=== PATIENT | male | born 1950 | race Caucasian/White ===

== ENCOUNTER 2018-10-27 07:11 | Emergency (ER) | payer MEDICARE, OTHER ==
--- OUTSIDE RECORDS SUMMARY | 2018-10-27 07:20 | XMS REPORT | Continuity of Care Document ---
:1950 External Reference #:[id number] Author Name Karrie Trujillo Care Team Providers Name Role Phone Cliff Osorio M.D. Primary Care Physician Unavailable Payers Date Identification Numbers Payment Provider Subscriber Effective: 2013 Policy Number: [id number] Medicare Part B Rickey Webster PayID: [id number] [address] [place] [address] Effective: 2013 Policy Number: [id number] [facility] Rickey Webster Group Number: [id number] [address] PayID: [id number] [place] [address] Effective: 2013 Policy Number: [id number] Medicare Part B Rickey Webster Expires: 2018 PayID: [id number] [address] [place] [address] Expires: 2011 Policy Number: [facility] Rickey Webster [id number] PayID: [id number] [address] [address] [place] [address] Advance Directives Description No Information Available Problems Date Description Provider Status Onset: 11/08/2012 Automatic implantable cardiac Ashwin Quinones MD Active defibrillator in situ Onset: 11/08/2012 Primary cardiomyopathy Ashwin Quinones MD Active Onset: 11/08/2012 Paroxysmal ventricular tachycardia Ashwin Quinones MD Active Onset: 11/08/2012 Aortic valve disorder Ashwin Quinones MD Active Onset: 03/23/2012 Atrial flutter Ashwin Quinones MD Active Onset: 04/14/2011 Atrial fibrillation Ashwin Quinones MD Active Family History Date Family Member(s) Observation Comments Father Cancer Mother Congestive Heart Failure (CHF) Social History Type Date Description Comments Sex Unknown Tobacco Use Start: Unknown End: Patient is a former smoker Smoking Status Reviewed: 05/11/18 Patient is a former smoker Allergies, Adverse Reactions, Alerts Description No Known Drug Allergies Medications Medication Date Status Form Strength Qnty SIG Indications Ordering Provider Aspirin 81 09/21/ Active Tablets DR 81mg 1 by mouth Ashwin 2018 every day MD Stacie Potassium 04/03/ Active Capsules ER 10Meq 1 by mouth Breiman, Chloride ER 2017 every day Cliff Willard M.D. Amiodarone 05/05/ Active Tablets 100mg 36tabs 1 by mouth Ashwin HCL 2016 every m, w, patsy Quinones MD Lasix 11/15/ Active Tablets 40mg 90tabs 1 by mouth Ashwin 2013 every day MD Stacie Aldactone 04/01/ Active Tablets 25mg 90tabs 1 by mouth Ashwin 2010 every day MD Stacie Prevacid / Active Capsules DR 30mg 90caps 1 by mouth Ashwin every day MD Stacie Advair / Active Aerosol 250-50mcg/ 1 puff bid Unknown Diskus 0000 Dose Kristine / Active Tablets 180mg 1 PO qd prn Unknown Allergy 0000 Albuterol / Active Nebulizer (2.5mg/3ML 1 nebulized Unknown Sulfate 0000 ) 0.083% three times a day needed SOB, wheezing Spiriva / Active Capsules 18mcg 1 by mouth Unknown Handihaler 0000 everyday Lopressor / Active Tablets 50mg 90tabs 1/2 by Ashwin 0000 mouth twice mary Quinones MD Immunizations Description No Information Available Vital Signs Date Vital Result Comment 09/21/2018 1:04pm Height 68 inches 5'8" Weight 207.00 lb BMI (Body Mass Index) 31.5 kg/m2 BP Systolic Right Arm 122 mmHg BP Diastolic Right Arm 88 mmHg 05/11/2018 10:19am Height 68 inches 5'8" Weight 209.00 lb BMI (Body Mass Index) 31.8 kg/m2 BP Systolic Left Arm 128 mmHg BP Diastolic Left Arm 90 mmHg Heart Rate 76 /min 05/05/2017 2:56pm Height 68 inches Weight 213.00 lb BMI (Body Mass Index) 32.4 kg/m2 BP Systolic 150 mmHg BP Diastolic 100 mmHg Heart Rate 90 /min 07/22/2016 11:34am Height 68 inches Weight 215.00 lb BMI (Body Mass Index) 32.7 kg/m2 BP Systolic 172 mmHg BP Diastolic 78 mmHg Heart Rate 64 /min 10/29/2015 10:57am Height 68 inches Weight 210.00 lb BMI (Body Mass Index) 31.9 kg/m2 BP Systolic 122 mmHg BP Diastolic 88 mmHg Heart Rate 66 /min 02/20/2015 12:24pm Height 68 inches Weight 199.00 lb BMI (Body Mass Index) 30.3 kg/m2 BP Systolic 104 mmHg BP Diastolic 78 mmHg Heart Rate 60 /min 11/15/2013 10:22am Height 68 inches Weight 198.00 lb BMI (Body Mass Index) 30.1 kg/m2 BP Systolic 118 mmHg BP Diastolic 76 mmHg Heart Rate 81 /min 11/09/2012 1:54pm Height 68 inches Weight 211.00 lb BMI (Body Mass Index) 32.1 kg/m2 BP Systolic 132 mmHg BP Diastolic 70 mmHg Heart Rate 74 /min 03/23/2012 3:41pm Height 68 inches Weight 219.50 lb BMI (Body Mass Index) 33.4 kg/m2 BP Systolic 118 mmHg BP Diastolic 72 mmHg Heart Rate 70 /min 07/05/2011 12:20pm Height 68 inches Weight 218.00 lb BMI (Body Mass Index) 33.1 kg/m2 BP Systolic 120 mmHg BP Diastolic 88 mmHg Heart Rate 68 /min 05/27/2011 2:01pm Height 68 inches Weight 217.00 lb BMI (Body Mass Index) 33.0 kg/m2 BP Systolic 104 mmHg BP Diastolic 76 mmHg Heart Rate 72 /min 04/01/2011 12:02pm Height 68 inches Weight 220.00 lb BMI (Body Mass Index) 33.4 kg/m2 BP Systolic 110 mmHg BP Diastolic 88 mmHg Heart Rate 68 /min Body Temperature 97.3 F Body Temperature 36.3 C 03/01/2011 3:26pm Height 68 inches Weight 230.00 lb BMI (Body Mass Index) 35.0 kg/m2 BP Systolic 160 mmHg BP Diastolic 80 mmHg Heart Rate 80 /min 01/05/2011 11:56am BP Systolic 154 mmHg BP Diastolic 88 mmHg 01/05/2011 11:56am Height 66 inches Weight 228.00 lb BMI (Body Mass Index) 36.8 kg/m2 BP Systolic 150 mmHg BP Diastolic 90 mmHg Heart Rate 68 /min Results Test Date Facility Test Result H/L Range Note Order 09/21/2018 [facility], [facility] EKG <pending> TRENT 11/15/2013 [facility] A/G Ratio 1.5 Ratio 1.0-2.0 [address] [place] [address] [phone] Albumin 4.1 g/dL 3.4-4.8 Alk. Phos. 63 U/L 25-100 1 Alt 19 U/L 4-36 Ast 16 U/L 8-33 Direct Bilirubin 0.3 mg/dL High 0.0-0.2 Globulin 2.7 g/dL 2.4-3.7 Total Bilirubin 1.0 mg/dL 0.3-1.2 Total Protein 6.8 g/dL 6.4-8.3 TSH+Free T4 11/15/2013 [facility] Free T4 1.20 ng/dL 0.89-1.80 [address] [place] [address] [phone] TSH3 2.271 miu/ml 0.350-5.500 TRENT 03/30/2012 [facility] A/G Ratio 1.8 Ratio 1.0-2.0 [address] [place] [address] [phone] Albumin 4.5 g/dL 3.4-4.8 Alk. Phos. 61 U/L 25-100 2 Alt 23 U/L 4-36 Ast 22 U/L 8-33 Direct Bilirubin 0.2 mg/dL 0.0-0.2 Globulin 2.5 g/dL 2.4-3.7 Total Bilirubin 0.9 mg/dL 0.3-1.2 Total Protein 7.0 g/dL 6.4-8.3 Laboratory test 04/01/2011 [facility] B Natriuretic 99 pg/mL (0-100) finding [address] [place] [address] [phone] Basic Metabolic 04/01/2011 [facility] Anion Gap 11 mmol/L (7-16) Panel W/O Egfr [address] [place] [address] [phone] BUN/Creat Ratio 10.9 RATIO (10.0-20.0) Calcium 9.3 mg/dL (8.4-10.2) Chloride 105 mmol/L (100-108) Co2 29 mmol/L (22-31) Creatinine 1.1 mg/dL (0.8-1.3) GFR 72 ML/MIN/1.73M2 (>59) GFR ( Amer) 87 ML/MIN/1.73M2 (>59) Glucose 74 mg/dL (70-99) Potassium 4.2 mmol/L (3.6-5.2) Sodium 145 mmol/L (136-145) 3 Urea Nitrogen 12 mg/dL (7-24) CBC W/Auto Diff 04/01/2011 [facility] % Tobin 66.1 % 41.0-80.0 [address] [place] [address] [phone] %Baso 0.9 % 0.0-3.0 %Eos 3.8 % 0.0-8.0 %Lym 21.4 % 10.0-45.2 %Chilton 5.7 % 2.0-13.0 Baso 0.1 x10E3/uL 0.0-0.2 Eos 0.4 x10E3/uL 0.0-0.6 HCT 42.8 % 39-52 HGB 14.2 g/dL 13.8-18.0 Lymp 2.5 x10E3/uL 0.6-3.1 MCH 29.6 pg 27-33 MCHC 33.3 g/dL 32-36 MCV 89.1 fL 80-98 MPV 6.6 fL Low 7.0-12.3 Chilton 0.7 x10E3/uL 0.0-1.0 Neut 7.6 x10E3/uL 2.0-8.1 PLT 433 x10E3/uL High 135-420 RBC 4.80 x10E6/uL 4.4-6.0 RDW 12.3 % 11.2-15.2 WBC 11.4 x10E3/uL 4.2-12.0 4 1 Results may reflect a potential interference in Total Protein results in patients receiving dextran as blood volume expanders. 2 Results may reflect a potential interference in Total Protein results in patients receiving dextran as blood volume expanders. 3 NORMAL KIDNEY FUNCTION OR MILD DISEASE - GFR >OR=60 CHRONIC KIDNEY DISEASE - GFR 15 - 59 RENAL FAILURE - GFR <15 Est. GFR calculation based on the MDRD study equation, which assumes a steady state for creatinine. Est. GFR should not be used for medication dosing. 4 report faxed [phone] threadsy Procedures Date Code Description Status 09/21/2018 23625 Dual Lead Implantable Cardioverter-Defibrillator Completed 09/21/2018 09423 Electrocardiogram Complete Completed 08/17/2018 65115 Pacemaker/Cardio-Defibrillator Remote Data Acquistion Completed 08/17/2018 88178 Interrogation Device Evaluation Cardioverter-Defibrillator Completed 05/11/2018 20040 Implant Cardiovascular Monitoring System Completed 05/11/2018 73903 Dual Lead Implantable Cardioverter-Defibrillator Completed 11/24/2017 97898 Pacemaker/Cardio-Defibrillator Remote Data Acquistion Completed 11/24/2017 38034 Interrogation Device Evaluation Cardioverter-Defibrillator Completed 08/18/2017 54097 Pacemaker/Cardio-Defibrillator Remote Data Acquistion Completed 08/18/2017 75580 Interrogation Device Evaluation Cardioverter-Defibrillator Completed 05/05/2017 42689 Electrocardiogram Complete Completed 05/05/2017 41922 Electrocardiogram Complete Completed 05/05/2017 81023 Dual Lead Pacemaker System Completed 05/05/2017 39586 Dual Lead Pacemaker System Completed 05/05/2017 81103 Implant Cardiovascular Monitoring System Completed 05/05/2017 86750 Implant Cardiovascular Monitoring System Completed 01/23/2017 70995 Pacemaker/Cardio-Defibrillator Remote Data Acquistion Completed 01/23/2017 88580 Interrogation Device Evaluation Cardioverter-Defibrillator Completed 10/21/2016 24908 Pacemaker/Cardio-Defibrillator Remote Data Acquistion Completed 10/21/2016 80951 Interrogation Device Evaluation Cardioverter-Defibrillator Completed 05/04/2016 00265 Implant CV Monitoring/Loop Record System Remote Data Completed Acquistion 05/04/2016 10453 Implantable Loop Recorder System, Review And Report Completed 01/28/2016 73636 Pacemaker/Cardio-Defibrillator Remote Data Acquistion Completed 01/28/2016 76947 Interrogation Device Evaluation Cardioverter-Defibrillator Completed 10/29/2015 07367 Electrocardiogram Complete Completed 10/29/2015 54537 Dual Lead Implantable Cardioverter-Defibrillator Completed 02/20/2015 78322 Implant Cardiovascular Monitoring System Completed 02/20/2015 20361 Dual Lead Implantable Cardioverter-Defibrillator Completed 11/15/2013 73815 Implant Cardiovascular Monitoring System Completed 11/15/2013 03931 Dual Lead Implantable Cardioverter-Defibrillator Completed 11/15/2013 32164 Electrocardiogram Complete Completed 11/09/2012 36168 Echocardiography, Tranthoracic Real-Time Image Completed Documentation 11/09/2012 59189 Interrogation Device Evaluation Cardioverter-Defibrillator Completed 03/23/2012 37201 Dual Lead Implantable Cardioverter-Defibrillator Completed 03/23/2012 95254 Electrocardiogram Complete Completed 07/05/2011 47052 Dual Lead Implantable Cardioverter-Defibrillator Completed 07/05/2011 57437 Electrocardiogram Complete Completed 05/27/2011 42116 Electrocardiogram Complete Completed 05/27/2011 95692 Dual Lead Implantable Cardioverter-Defibrillator Completed 04/01/2011 13133 Electrocardiogram Complete Completed 03/25/2011 15569 Evaluate Cardioverter-Defibirllator Lead, Test Pulse Completed Generator 03/25/2011 33302 X-Ray & Pacemaker Insertion Completed 03/25/2011 42796 Insert/Replace Cardioverter-Defibrillator Leads W/Pulse Completed Generator 03/24/2011 78604 Intracardiac Catheter Ablation For Supravent Tachycardia Completed 03/24/2011 50156 Electrophysiologic Evaluation W/Left Atrial Recordings Completed 03/24/2011 65262 Electrophysiologic Eval,comprehensive W/Induction Of Completed Arrhythmia 03/24/2011 22532 Mapping Of Tachycardia Completed 03/24/2011 32502 Echocardiography, Tranthoracic Real-Time Image Completed Documentation 03/01/2011 25925 Electrocardiogram Complete Completed 01/05/2011 25834 Electrocardiogram Complete Completed Encounters Type Date Location Provider Dx Diagnosis Office Visit 09/21/2018 [facility] Cardiology AT [place] Farrell.2 Ventricular 1:00p Naman CASTELLANOS tachycardia Z95.810 Presence of automatic (implantable) cardiac defibrillator Office Visit 05/11/2018 [facility] Cardiology AT [facility] I42.0 Dilated 10:30a Naman Quinones MD cardiomyopathy I48.0 Paroxysmal atrial fibrillation Z95.810 Presence of automatic (implantable) cardiac defibrillator Office Visit 05/05/2017 9:57a [facility] Cardiology AT [facility] I47.2 Ventricular Naman Quinones MD tachycardia I42.9 Cardiomyopathy, unspecified Office Visit 07/22/2016 [facility] Cardiology AT [facility] I48.0 Paroxysmal atrial 12:13p Naman Quinones MD fibrillation Z95.810 Presence of automatic (implantable) cardiac defibrillator Office Visit 10/29/2015 [facility] Cardiology [place] Z95.810 Presence of 3:58p AT [place] automatic (implantable) cardiac defibrillator I42.9 Cardiomyopathy, unspecified I47.2 Ventricular tachycardia Plan of Treatment Future Appointment(s):10/22/2018 11:00 am - [facility] at [facility] Cardiology AT [place]jo[facility]/15/2019 11:00 am - Device Checks at [facility] Cardiology AT Nsgdaitmszjn70/ 15/2019 11:00 am - Ashwin Quinones MD at [facility] Cardiology AT Hebfsreezpjd89/15/ 2019 - Ashwin Quinones MDI47.2 Ventricular [id number] Presence of automatic (implantable) cardiac defibrillator
[2018-10-27 07:32] VITALS: BP 159/89
--- NOTE | 2018-10-27 08:03 | UC ---
General HPI - HPI Summary HPI Summary: Pleasant 67 yo gentleman c/o progressive worse cough with green production last couple days. Uses cpap at night, but stilll not able to sleep. LAst night went to sleep approx 2am and awoke approx 5am, coiughing green sputum and difficulty breathing. used 2 home nebulized tx's, but didn't make him feel that much better, prompting visit to [facility]. No palpitations. No GI issues. He is scheduled for battery replacement for pacemaker in [place] on Monday. No fever / chills. No issues. He is under a great deal of stress, spouse is in the process of end of end-stage 4 cancer. - History of Current Complaint Chief Complaint: UCRespiratory Stated Complaint: CHEST CONGESTION Time Seen by Provider: 10/27/18 07:30 Hx Obtained From: Patient Pain Intensity: 0 - Allergy/Home Medications Allergies/Adverse Reactions: Allergies Allergy/AdvReac Type Severity Reaction Status Date / Time No Known Allergies Allergy Verified 10/27/18 07:25 Home Medications: Home Medications Amiodarone HCl [Pacerone] 100 mg PO SEE INSTRUCTIONS 10/27/18 [History Confirmed 10/27/18] Fluticasone NASAL SPRAY 50MCG* [Flonase NASAL SPRAY 50MCG*] 1 spray .ROUTE DAILY 10/27/18 [History Confirmed 10/27/18] Furosemide TAB* [Lasix TAB*] 40 mg PO DAILY 10/27/18 [History Confirmed 10/27/18 ] LevoCETirizine TAB (NF) [Xyzal TAB (NF)] 5 mg PO DAILY 10/27/18 [History Confirmed 10/27/18] Potassium Chlor TAB (NF) [Kaon-Cl-10 TAB (NF)] 10 meq PO DAILY 10/27/18 [ History Confirmed 10/27/18] PMH/Surg Hx/FS Hx/Imm Hx Previously Healthy: No - see below, see hpi Cardiovascular History: Cardiac Disease, Hypertension, Pacemaker/ICD Respiratory History: COPD - Surgical History Surgical History: Yes Surgery Procedure, Year, and Place: pacer/defib- 03/2011. eyes- cataract, detached retina - Family History Known Family History: Positive: Hypertension - Social History Alcohol Use: None Substance Use Type: None Smoking Status (MU): Former Smoker When Did the Patient Quit Smoking/Using Tobacco: 30 years ago - Immunization History Most Recent Influenza Vaccination: 2014 Review of Systems All Other Systems Reviewed And Are Negative: Yes Constitutional: Positive: Fatigue Skin: Positive: Negative Eyes: Positive: Negative ENT: Positive: Sinus Congestion Respiratory: Positive: Shortness Of Breath, Cough Cardiovascular: Positive: Negative - see hpi Gastrointestinal: Positive: Other - see hpi Genitourinary: Positive: Other - see hpi Motor: Positive: Negative Neurovascular: Positive: Negative Musculoskeletal: Positive: Negative Neurological: Positive: Negative Psychological: Positive: Negative Is Patient Immunocompromised?: No Physical Exam Triage Information Reviewed: Yes Appearance: Well-Nourished - looks tired, sitting up, conversing in full sentances, able walk Vital Signs: Initial Vital Signs Temp 98.3 F 10/27/18 07:24 Pulse 94 10/27/18 07:24 Resp 18 10/27/18 07:24 BP 159/89 10/27/18 07:24 Pulse Ox 95 10/27/18 07:24 Vital Signs Reviewed: Yes Eye Exam: Normal - eyes watery ENT: Positive: Pharyngeal erythema - redness, appears c/w cough, Nasal drainage Neck exam: Normal Neck: Positive: Supple Respiratory Exam: Other - + rhonchi, lise wheeze R>L Cardiovascular Exam: Other - HR regular with extra beats, correlates with L radial pulse. C/w pacer Abdominal Exam: Normal Abdomen Description: Positive: Nontender Musculoskeletal: Positive: Edema @ - mild dependent edema, hemosiderosis Neurological Exam: Normal - grossly nonfocal Psychological Exam: Normal - conversing easily and appropriately Skin Exam: Normal - nondiaphoretic. No visible or reported rash Course/Dx - Course Course Of Treatment: Declines neb tx, will let us know otherwise. R eac flushed - able to hear, tm intact. Reviewed CXR report with pt. See [facility]. Pneumonia. EKG reviewed - no old in [facility]. Mr. Webster absolutely declines going to the Emergency Department. He wants to be home with his . He is aware of the need to call 911 and go to the Emergency Department for any worse or new problems, shortness of breath, etc. Has nebulizer with medications at home. Irrigation R marisela (RN) - tm looks good. Rocephin x 1 here. Will start augmentin, pred taper. Questions as posed answered to the best of my ability. - Diagnoses Provider Diagnosis: Bilateral pneumonia, Cerumen impaction, COPD (chronic obstructive pulmonary disease) Discharge - Sign-Out/Discharge Documenting (check all that apply): Patient Departure All imaging exams completed and their final reports reviewed: Yes - Discharge Plan Condition: Stable Disposition: HOME Prescriptions: Amoxicillin/Clavulanate TAB* [Augmentin TAB 875*] 875 mg PO BID 14 Days #28 tab predniSONE TAB* [Deltasone 10 MG TAB*] 10 mg PO DAILY #32 tab Patient Education Materials: COPD (Chronic Obstructive Pulmonary Disease) (ED) , Bacterial Pneumonia (ED), Wheezing (ED), Cerumen Impaction (ED) Referrals: Cliff Osorio MD [Medical Doctor] - Additional Instructions: Follow up with your primary care physician ON MONDAY. CAll 911 and go to the Emergency Department for any worse or new problems. You must maintain good nutrition, including protein. Drink plenty of water. - Billing Disposition and Condition Condition: STABLE Disposition: Home
[2018-10-27] MEDS ORDERED: cefTRIAXone VIAL(*) 1,000 MG VIAL IM ONE (09:17)
[2018-10-27] MEDS ORDERED: Lidocaine 1%* 5 ML VIAL INJ ONE (09:22)
== END 2018-10-27 10:00 | disposition home or self-care (01) ==
LOC: UCEAST 07:11
DX: J18.9 Pneumonia, unspecified organism (principal); H61.21 Impacted cerumen, right ear; J44.9 Chronic obstructive pulmonary disease, unspecified; I11.9 Hypertensive heart disease without heart failure; Z95.810 Presence of automatic (implantable) cardiac defibrillator; Z87.891 Personal history of nicotine dependence
CPT/HCPCS: 71046; 93005; 96372; 99202; G0463; J0696

== ENCOUNTER 2019-09-17 16:48 | Emergency (ER) | payer MEDICARE, OTHER ==
[2019-09-17 16:59] VITALS: BP 130/93
--- NOTE | 2019-09-17 18:06 | UC ---
Lower Extremity/Ankle HPI - HPI Summary HPI Summary: 68-year-old male comes in with a chief complaint of some hardened varicose veins in his right calf. He noticed them a couple days ago. No chest pain no shortness of breath no prior history of deep venous thrombosis. He does have a pacemaker defibrillator and at one time he was upper neck however he is not on any longer. Denies any fever chills. Denies the area hurts. The area over the hard varicose veins is erythematous. - History of Current Complaint Chief Complaint: UCLowerExtremity Stated Complaint: POSS DVT IN LEG Time Seen by Provider: 09/17/19 17:51 Pain Intensity: 0 - Allergies/Home Medications Allergies/Adverse Reactions: Allergies Allergy/AdvReac Type Severity Reaction Status Date / Time No Known Allergies Allergy Verified 09/17/19 16:59 Home Medications: Home Medications Spironolactone [Aldactone] 25 mg PO DAILY 04/07/13 [History Confirmed 09/17/19] Tiotropium CAPSULE (NF) [Spiriva*] 1 cap INH DAILY 04/07/13 [History Confirmed 09/17/19] Furosemide TAB* [Lasix TAB*] 40 mg PO DAILY 10/27/18 [History Confirmed 09/17/19 ] LevoCETirizine TAB (NF) [Xyzal TAB (NF)] 5 mg PO DAILY 10/27/18 [History Confirmed 09/17/19] Potassium Chlor TAB (NF) [Kaon-Cl-10 TAB (NF)] 10 meq PO DAILY 10/27/18 [ History Confirmed 09/17/19] Amiodarone HCl [Pacerone-] 100 mg PO DAILY 09/17/19 [History Confirmed 09/17/19] Aspirin 81 mg CHEW TAB* 81 mg PO DAILY 09/17/19 [History Confirmed 09/17/19] LevoCETirizine TAB (NF) [Xyzal TAB (NF)] 5 mg PO DAILY 09/17/19 [History Confirmed 09/17/19] Metoprolol Tartrate TAB* [Lopressor TAB*] 50 mg PO DAILY 09/17/19 [History Confirmed 09/17/19] hydrOXYzine HCL [Hydroxyzine HCl] 10 mg PO DAILY 09/17/19 [History Confirmed 04/28] PMH/Surg Hx/FS Hx/Imm Hx Previously Healthy: Yes Cardiovascular History: Cardiac Disease, Hypertension, Congestive Heart Failure Respiratory History: COPD - Surgical History Surgical History: Yes Surgery Procedure, Year, and Place: pacer/defib- 03/2011. eyes- cataract, detached retina - Family History Known Family History: Positive: Hypertension - Social History Alcohol Use: None Substance Use Type: None Smoking Status (MU): Former Smoker When Did the Patient Quit Smoking/Using Tobacco: 30 years ago - Immunization History Most Recent Influenza Vaccination: 2014 Review of Systems All Other Systems Reviewed And Are Negative: Yes Constitutional: Positive: Negative Skin: Positive: Other - SEE HPI Eyes: Positive: Negative ENT: Positive: Negative Respiratory: Positive: Negative Cardiovascular: Positive: Negative Motor: Positive: Negative Neurovascular: Positive: Negative Musculoskeletal: Positive: Other: - SEE HPI Neurological/Mental Status: Positive: Negative Psychological: Positive: Negative Is Patient Immunocompromised?: No Physical Exam Triage Information Reviewed: Yes Appearance: Well-Appearing, No Pain Distress, Well-Nourished Vital Signs: Initial Vital Signs Temp 97.9 F 09/17/19 16:53 Pulse 82 09/17/19 16:53 Resp 16 09/17/19 16:53 BP 130/93 09/17/19 16:53 Pulse Ox 98 09/17/19 16:53 Vital Signs Reviewed: Yes Eye Exam: Normal Eyes: Positive: Conjunctiva Clear Neck: Positive: Supple Respiratory: Positive: Lungs clear, Normal breath sounds, No respiratory distress Cardiovascular: Positive: RRR Musculoskeletal: Positive: Strength Intact, ROM Intact, Other: - Right calf has an area proximal before some years diameter of hardened varicose veins with some erythema over them. No streaking no drainage. No open skin. Nontender to palpation proximally into the popliteal. Neurological: Positive: Alert Psychological: Positive: Age Appropriate Behavior Skin: Positive: Other - Mild erythema over the right calf hardened varicose veins. Lower Extremity Course/Dx - Course Course Of Treatment: Director Of Agronomy: Joseph Calderon ([id number]) Rivet Hole Puncher: FLORENTINO (FLORENTINO) Report Date: 09/17/2019 17:51:00 Report Status: Final Start of Report Content Patient Name: HERMINIO RENEE Medical Record#: [id number] Ordering Physician: Oscar Smyth MD Acct.#: [id number] : 04/1951 Age: 68 Sex: M Location: [facility] Exam Date: 09/17/191653 ADM Status: REG ER Order Information: VL LOWER EXT VEINS RIGHT Accession Number: [id number] CPT: 28221 HISTORY: "Lump" at mid medial right calf TECHNIQUE: Multiple transverse and longitudinal ultrasound images were obtained of the veins of the right lower extremity using grayscale, color Doppler, and spectral Doppler imaging with and without compression and with augmentation. FINDINGS: VEINS: The common femoral vein, deep femoral vein, femoral vein and popliteal vein are compressible throughout their course, with normal flow on color Doppler imaging and normal response to augmentation on spectral Doppler imaging. Corresponding to the palpable lump is echogenic material in the superficial veins consistent with superficial thrombophlebitis. IMPRESSION: 1. No sonographic evidence of deep vein thrombosis. 2. Sonographic images are consistent with thrombophlebitis of superficial varicose veins. On a nonemergent basis superior characterization could be made with a sonographic superficial vein reflux study and/or contrast-enhanced CT of the abdomen and pelvis to evaluate for any central venous compressions. If the latter is obtained, CT venography can be obtained by injecting IV contrast at the level of the right ankle and imaging the contrast bolus in the right thigh as well as the abdomen or pelvis. ___ <Electronically signed by Joseph Calderon MD in OV> 09/17/191746 Dictated By: Joseph Calderon MD Dictated Date/Time: 09/17/191743 Transcribed Date/Time: 1743 Copy to: CC:Health system Physicians; Cliff Osorio MD; Oscar Smyth MD Imaging - [facility] - [facility] [address] [facility] [address] ph [phone]) ph [phone]) ph ) End of Report Content I discussed the results of the venous Doppler. At this time is a superficial thrombophlebitis and will treat as such with anti-inflammatories elevation and cool compresses. I asked the patient to call his primary care doctor tomorrow to discuss compression stockings and further evaluation and care. Also let the patient know that if the area spread or if he got pain higher up in the leg or felt any chest pain or shortness of breath immediate reevaluated again right away. - Differential Dx/Diagnosis Provider Diagnosis: Superficial thrombophlebitis of right leg Discharge ED - Sign-Out/Discharge Documenting (check all that apply): Patient Departure All imaging exams completed and their final reports reviewed: Yes - Discharge Plan Condition: Stable Disposition: HOME Patient Education Materials: Superficial Thrombophlebitis (ED) Referrals: Cliff Osorio MD [Primary Care Provider] - Additional Instructions: FOLLOW UP WITH DR OSORIO. CALL TOMORROW TO ARRANGE FOLLOW UP. YOU MAY NEED ANOTHER ULTRASOUND TO RECHECK YOUR RIGHT LEG IF THE AREA AFFECTED GETS LARGER OR DOES NOT GO AWAY. GO TO THE EMERGENCY DEPARTMENT IF WORSE; CHEST PAIN, SHORTNESS OF BREATH OR ANY QUESTIONS OR CONCERNS. - Billing Disposition and Condition Condition: STABLE Disposition: Home
== END 2019-09-17 18:08 | disposition home or self-care (01) ==
LOC: UCEAST 16:48
DX: I80.01 Phlebitis and thrombophlebitis of superficial vessels of right lower extremity (principal); I10 Essential (primary) hypertension; J44.9 Chronic obstructive pulmonary disease, unspecified; I50.9 Heart failure, unspecified; Z79.82 Long term (current) use of aspirin; Z79.899 Other long term (current) drug therapy; Z87.891 Personal history of nicotine dependence
CPT/HCPCS: 99212; G0463

== ENCOUNTER 2021-11-15 10:22 | Inpatient (IN) ==
[2021-11-15] MEDS ORDERED: Cefepime 2 GM in Dextrose 2 GM/50 ML BAG IV ONE (10:40)
[2021-11-15] MEDS ORDERED: Vancomycin 1,000 MG VIAL IVPB SCH (11:00)
[2021-11-15 11:42] LABS: ABS Eosinophils 0.3 10^3/ul (0-0.6); ABS Monocytes 0.7 10^3/ul (0-0.8); ABS Neutrophils 4.1 10^3/ul (1.5-7.7); Eosinophil % 5.6 %; Hematocrit 38 % (42-52); Hemoglobin 12.2 g/dL (14.0-18.0); Lymphocyte % 16.8 %; Mean Corpuscular HGB Conc 32 g/dL (31-36); Mean Corpuscular Hemoglobin 29 pg (27-31); Mean Corpuscular Volume 90 fL (80-94); Mean Platelet Volume 7.5 fL (7.4-10.4); Platelet Count 252 10^3/uL (150-450); Red Blood Count 4.21 10^6 /uL (4.18-5.48); Red Cell Distribution Width 15 % (10-15); White Blood Count 6.2 10^3/uL (3.5-10.8)
[2021-11-15 12:24] LABS: Albumin 4.4 g/dL (3.2-5.2); Albumin/Globulin Ratio 1.8 (1-3); C Reactive Protein 7.47 mg/L (<8.01); Calcium 9.7 mg/dL (8.6-10.3); Globulin 2.5 g/dL (2-4); Potassium 4.5 mmol/L (3.5-5.0); Total Bilirubin 0.8 mg/dL (0.2-1.0); Total Protein 6.9 g/dL (6.4-8.9); Uric Acid 8.7 mg/dL (4.4-7.6)
[2021-11-15] MEDS ORDERED: Vancomycin 1,500 MG in NS 0.9% 250 ml 250 ML IVPB ONE (15:30)
[2021-11-15] MEDS ORDERED: Vancomycin per Pharmacy 1 EA NOTE FOLLOW UP SCH (16:00)
[2021-11-15] MEDS: Enoxaparin 40 MG/0.4 ML SYR SUBCUT SCH (20:34)
[2021-11-16 05:59] LABS: ABS Basophils 0.1 10^3/ul (0-0.2); ABS Eosinophils 0.4 10^3/ul (0-0.6); ABS Monocytes 0.7 10^3/ul (0-0.8); ABS Neutrophils 3.8 10^3/ul (1.5-7.7); Eosinophil % 7.2 %; Hematocrit 37 % (42-52); Hemoglobin 11.9 g/dL (14.0-18.0); Lymphocyte % 16.9 %; Mean Corpuscular HGB Conc 32 g/dL (31-36); Mean Corpuscular Hemoglobin 29 pg (27-31); Mean Corpuscular Volume 90 fL (80-94); Mean Platelet Volume 7.5 fL (7.4-10.4); Platelet Count 226 10^3/uL (150-450); Red Blood Count 4.14 10^6 /uL (4.18-5.48); Red Cell Distribution Width 15 % (10-15); White Blood Count 5.9 10^3/uL (3.5-10.8)
[2021-11-16 06:22] LABS: Calcium 9.5 mg/dL (8.6-10.3); eGFR CKD-EPI 40.9 (>60)
[2021-11-16] MEDS: SPIRIVA Respimat (tiotropium) 2.5 mcg/inh Inhaler INH SCH (07:57)
[2021-11-16] MEDS: Mometasone/Formoter 200/5 MDI INH SCH ×2 (07:57→21:17)
[2021-11-16 08:49] LABS: C Reactive Protein 6.34 mg/L (<8.01)
[2021-11-16] MEDS: Vancomycin 1,250 MG in NS 0.9% 250 ml 250 ML IVPB SCH (15:18)
[2021-11-16] MEDS ORDERED: Vancomycin per Pharmacy 1 EA NOTE FOLLOW UP SCH (16:37)
[2021-11-16] MEDS: Enoxaparin 40 MG/0.4 ML SYR SUBCUT SCH (17:28)
[2021-11-17] MEDS: Mometasone/Formoter 200/5 MDI INH SCH ×2 (07:06→20:35)
[2021-11-17] MEDS: SPIRIVA Respimat (tiotropium) 2.5 mcg/inh Inhaler INH SCH (07:07)
[2021-11-17] MEDS ORDERED: Albuterol HFA INHALER 8 gm MDI INH PRN (07:23)
[2021-11-17 08:52] LABS: Calcium 9.6 mg/dL (8.6-10.3)
[2021-11-17 09:05] LABS: Potassium 5.2 mmol/L (3.5-5.0)
[2021-11-17] MEDS: Vancomycin 1,250 MG in NS 0.9% 250 ml 250 ML IVPB SCH (14:48)
[2021-11-17] MEDS: Enoxaparin 40 MG/0.4 ML SYR SUBCUT SCH (18:07)
[2021-11-18 04:47] LABS: Hematocrit 37 % (42-52); Hemoglobin 11.7 g/dL (14.0-18.0); Mean Corpuscular HGB Conc 32 g/dL (31-36); Mean Corpuscular Hemoglobin 29 pg (27-31); Mean Corpuscular Volume 90 fL (80-94); Mean Platelet Volume 7.5 fL (7.4-10.4); Platelet Count 247 10^3/uL (150-450); Red Blood Count 4.08 10^6 /uL (4.18-5.48); Red Cell Distribution Width 15 % (10-15); White Blood Count 7.3 10^3/uL (3.5-10.8)
[2021-11-18 05:03] LABS: Calcium 9.3 mg/dL (8.6-10.3); Potassium 4.5 mmol/L (3.5-5.0); eGFR CKD-EPI 38.7 (>60)
[2021-11-18] MEDS: Mometasone/Formoter 200/5 MDI INH SCH ×2 (08:28→09:08)
[2021-11-18] MEDS: SPIRIVA Respimat (tiotropium) 2.5 mcg/inh Inhaler INH SCH (08:28)
[2021-11-18] MEDS ORDERED: DALBAVANCIN HCL (NF) 500 MG/25 ML VIAL IVPB ONE (12:13)
[2021-11-18] MEDS: Vancomycin Trough Check NOTE FOLLOW UP ONE ×2 (12:19→14:24)
[2021-11-18] MEDS ORDERED: DALBAVANCIN HCL (NF) 1,000 MG in D5W 250 ml BAG 250 ML IVPB ONE (13:00)
[2021-11-18 15:42] VITALS: BP 120/79
== END 2021-11-18 16:50 | disposition home or self-care (01) | DRG 540 ==
LOC: ED 10:22 → SUATTDRO 14:42 → SSU 14:42 → MEDTELE 15:29 → SSU 18:42
PROVIDERS: ADMIT Internal Medicine; ATTEND Internal Medicine

== ENCOUNTER 2023-07-06 15:21 | Observation (INO) ==
[2023-07-06 16:51] LABS: ABS Basophils 0.1 10^3/uL (0.0-0.1); ABS Eosinophils 0.3 10^3/uL (0.0-0.5); ABS Lymphocytes 0.8 10^3/uL (1.0-4.8); ABS Monocytes 0.5 10^3/uL (0.0-1.1); ABS Neutrophils 3.6 10^3/uL (1.5-7.6); Eosinophil % 6.3 %; Hematocrit 29.8 % (38-53); Hemoglobin 9.7 g/dL (13.2-16.3); Lymphocyte % 15.8 %; Mean Corpuscular Hemoglobin 31.7 pg (27-33); Mean Corpuscular Hgb Conc 32.5 g/dL (31-36); Mean Corpuscular Volume 97.4 fL (80-97); Mean Platelet Volume 7.5 fL (7.5-11.2); Platelet Count 168 10^3/uL (150-450); Red Blood Count 3.05 10^6/uL (4.06-5.63); Red Cell Distribution Width 17.4 % (12-17); White Blood Count 5.4 10^3/uL (3.6-10.2)
[2023-07-06 16:58] LABS: INR 2.41 (0.83-1.13)
[2023-07-06 17:15] LABS: Albumin 3.4 g/dL (3.2-5.2); Albumin/Globulin Ratio 1.6 (1-3); C Reactive Protein 8.79 mg/L (<8.01); Creatinine, Serum 1.63 mg/dL (0.67-1.17); Globulin 2.1 g/dL (2-4); Magnesium 2.1 mg/dL (1.9-2.7); Total Bilirubin 0.8 mg/dL (0.2-1.0); Total Protein 5.5 g/dL (6.4-8.9); eGFR CKD-EPI 43.9 (>60)
[2023-07-06] MEDS ORDERED: Potassium Chlor 20 meq TAB.ER PO ONE (17:24)
[2023-07-06] MEDS ORDERED: KCL 10 MEQ/50 ML IVPREMIX 10 MEQ/50 ML BAG IV ONE (17:24)
[2023-07-06] MEDS ORDERED: Lactated Ringers 1000 ml BAG 1,000 ML IV ONE (17:37)
[2023-07-06] MEDS ORDERED: Albuterol 2.5mg/3 ml (0.083%) NEB.SOLN INH PRN (21:56)
[2023-07-07] MEDS: Mometasone/Formoter 200/5 MDI INH SCH ×3 (00:39→20:40)
[2023-07-07 06:46] LABS: Activated Partial Thrombo Time 39.3 seconds (26.0-38.0); INR 2.12 (0.83-1.13)
[2023-07-07 06:54] LABS: Albumin 3.4 g/dL (3.2-5.2); Albumin/Globulin Ratio 1.5 (1-3); Calcium 8.9 mg/dL (8.6-10.3); Creatinine, Serum 1.71 mg/dL (0.67-1.17); Globulin 2.2 g/dL (2-4); Potassium 3.4 mmol/L (3.5-5.0); Total Bilirubin 0.8 mg/dL (0.2-1.0); Total Protein 5.6 g/dL (6.4-8.9); eGFR CKD-EPI 41.5 (>60)
[2023-07-07 07:30] LABS: ABS Eosinophils 0.4 10^3/uL (0.0-0.5); ABS Lymphocytes 0.9 10^3/uL (1.0-4.8); ABS Monocytes 0.5 10^3/uL (0.0-1.1); ABS Neutrophils 4.7 10^3/uL (1.5-7.6); Eosinophil % 5.8 %; Hematocrit 29.9 % (38-53); Hemoglobin 9.7 g/dL (13.2-16.3); Lymphocyte % 14.2 %; Mean Corpuscular Hemoglobin 31.7 pg (27-33); Mean Corpuscular Hgb Conc 32.5 g/dL (31-36); Mean Corpuscular Volume 97.6 fL (80-97); Mean Platelet Volume 7.7 fL (7.5-11.2); Platelet Count 175 10^3/uL (150-450); Red Blood Count 3.07 10^6/uL (4.06-5.63); White Blood Count 6.5 10^3/uL (3.6-10.2)
[2023-07-07] MEDS ORDERED: Potassium Chloride LIQUID 20 MEQ/15 ML LIQUID PO ONE (09:26)
[2023-07-08 07:04] LABS: ABS Eosinophils 0.3 10^3/uL (0.0-0.5); ABS Lymphocytes 1.4 10^3/uL (1.0-4.8); ABS Monocytes 0.7 10^3/uL (0.0-1.1); ABS Neutrophils 4.8 10^3/uL (1.5-7.6); ABS Nucleated RBC 0.01 10^3/ul; Eosinophil % 4.2 %; Hemoglobin 9.9 g/dL (13.2-16.3); Lymphocyte % 18.9 %; Mean Corpuscular Hemoglobin 31.8 pg (27-33); Mean Corpuscular Hgb Conc 32.9 g/dL (31-36); Mean Corpuscular Volume 96.7 fL (80-97); Mean Platelet Volume 7.7 fL (7.5-11.2); Nucleated Red Blood Cells % 0.1 %/100WBC (0.0-0.8); Platelet Count 170 10^3/uL (150-450); Red Cell Distribution Width 17.3 % (12-17); White Blood Count 7.2 10^3/uL (3.6-10.2)
[2023-07-08 07:24] LABS: Creatinine, Serum 1.47 mg/dL (0.67-1.17); HDL Cholesterol 28.4 mg/dL; Potassium 3.7 mmol/L (3.5-5.0); eGFR CKD-EPI 49.7 (>60)
[2023-07-08] MEDS: Mometasone/Formoter 200/5 MDI INH SCH (09:05)
[2023-07-08 11:28] VITALS: BP 113/72
== END 2023-07-08 14:02 | disposition home health service (06) ==
LOC: EDHOLD 15:21 → ED 15:21 → SUATTDRO 22:00 → MEDTELE 23:23
PROVIDERS: ADMIT Internal Medicine; ATTEND Student in an Organized Health Care Education/Training Program

== ENCOUNTER 2023-07-09 10:21 | Inpatient (IN) ==
[2023-07-09] MEDS: Lactated Ringers 1000 ml BAG 1,000 ML IV ONE (10:47)
[2023-07-09 11:00] LABS: ABS Basophils 0.1 10^3/uL (0.0-0.1); ABS Eosinophils 0.2 10^3/uL (0.0-0.5); ABS Lymphocytes 1.1 10^3/uL (1.0-4.8); ABS Monocytes 0.8 10^3/uL (0.0-1.1); ABS Neutrophils 6.1 10^3/uL (1.5-7.6); Eosinophil % 2.3 %; Hematocrit 29.8 % (38-53); Hemoglobin 9.7 g/dL (13.2-16.3); Lymphocyte % 13.1 %; Mean Corpuscular Hemoglobin 31.7 pg (27-33); Mean Corpuscular Hgb Conc 32.6 g/dL (31-36); Mean Corpuscular Volume 97.1 fL (80-97); Mean Platelet Volume 7.7 fL (7.5-11.2); Platelet Count 158 10^3/uL (150-450); Red Blood Count 3.07 10^6/uL (4.06-5.63); Red Cell Distribution Width 17.1 % (12-17); White Blood Count 8.1 10^3/uL (3.6-10.2)
[2023-07-09 11:56] LABS: Albumin 3.6 g/dL (3.2-5.2); Albumin/Globulin Ratio 1.6 (1-3); Calcium 9.3 mg/dL (8.6-10.3); Creatinine, Serum 1.53 mg/dL (0.67-1.17); Globulin 2.3 g/dL (2-4); Potassium 3.6 mmol/L (3.5-5.0); Total Bilirubin 1.2 mg/dL (0.2-1.0); Total Protein 5.9 g/dL (6.4-8.9); eGFR CKD-EPI 47.4 (>60)
[2023-07-09] MEDS ORDERED: Albuterol/Ipratropium NEB.SOL (2.5/0.5 MG) 3 ML NEB.SOLN INH PRN (13:15)
[2023-07-09] MEDS: Aspirin EC 81 mg TAB.EC (enteric coated) PO SCH (14:07)
[2023-07-09] MEDS: Furosemide 40 mg/4 ml IV VIAL IV SLOW PU ONE (14:07)
[2023-07-09 15:35] LABS: TSH Ultra Thyroid Stim Horm 6.63 mcIU/mL (0.34-5.60)
[2023-07-09 17:56] LABS: Calcium 9.3 mg/dL (8.6-10.3); Creatinine, Serum 1.54 mg/dL (0.67-1.17); Potassium 3.7 mmol/L (3.5-5.0)
[2023-07-09] MEDS: Cyanocobalamin INJ 1,000 MCG/ML VIAL 1 ML VIAL IM ONE (18:35)
[2023-07-09] MEDS: Mometasone/Formoter 200/5 MDI INH SCH (19:47)
[2023-07-10 06:40] LABS: ABS Basophils 0.3 10^3/uL (0.0-0.1); ABS Eosinophils 0.4 10^3/uL (0.0-0.5); ABS Lymphocytes 0.9 10^3/uL (1.0-4.8); ABS Monocytes 0.7 10^3/uL (0.0-1.1); ABS Neutrophils 5.2 10^3/uL (1.5-7.6); ABS Nucleated RBC 0.01 10^3/ul; Eosinophil % 5.8 %; Hematocrit 28.5 % (38-53); Hemoglobin 9.2 g/dL (13.2-16.3); Lymphocyte % 12.2 %; Mean Corpuscular Hemoglobin 31.8 pg (27-33); Mean Corpuscular Hgb Conc 32.2 g/dL (31-36); Mean Corpuscular Volume 98.7 fL (80-97); Mean Platelet Volume 8.2 fL (7.5-11.2); Nucleated Red Blood Cells % 0.1 %/100WBC (0.0-0.8); Platelet Count 145 10^3/uL (150-450); Red Blood Count 2.89 10^6/uL (4.06-5.63); Red Cell Distribution Width 17.5 % (12-17); White Blood Count 7.7 10^3/uL (3.6-10.2)
[2023-07-10 07:19] LABS: Potassium 3.6 mmol/L (3.5-5.0)
[2023-07-10 07:21] LABS: Calcium 8.8 mg/dL (8.6-10.3); Creatinine, Serum 1.48 mg/dL (0.67-1.17); Magnesium 1.9 mg/dL (1.9-2.7); eGFR CKD-EPI 49.3 (>60)
[2023-07-10] MEDS: Potassium Chlor 20 meq TAB.ER PO ONE (09:11)
[2023-07-11 10:04] LABS: Creatinine, Serum 1.53 mg/dL (0.67-1.17); Magnesium 2.1 mg/dL (1.9-2.7); Potassium 3.8 mmol/L (3.5-5.0); eGFR CKD-EPI 47.4 (>60)
[2023-07-11] MEDS: HYDROcodone/ACETAMIN 5/325 mg TAB PO PRN (11:46)
[2023-07-11] MEDS: Furosemide 40 mg/4 ml IV VIAL IV SLOW PU ONE (15:26)
[2023-07-12 07:11] LABS: Calcium 8.6 mg/dL (8.6-10.3); Creatinine, Serum 1.84 mg/dL (0.67-1.17)
[2023-07-13 06:59] LABS: Calcium 8.9 mg/dL (8.6-10.3); Creatinine, Serum 1.54 mg/dL (0.67-1.17); Magnesium 2.2 mg/dL (1.9-2.7)
[2023-07-13 09:59] VITALS: BP 144/76
[2023-07-13 10:30] LABS: Rapid COVID-19 Molecular Undetected (Undetected)
== END 2023-07-13 14:00 | DRG 947 ==
LOC: ED 10:21 → EDHOLD 10:21 → SUATTDRO 12:16 → MEDTELE 14:38 → SSU 07-10 16:57
PROVIDERS: ADMIT Hospitalist; ATTEND Internal Medicine

== ENCOUNTER 2024-01-29 19:00 | Inpatient (IN) ==
[2024-01-29] MEDS: Albuterol/Ipratropium NEB.SOL (2.5/0.5 MG) 3 ML NEB.SOLN INH ONE ×2 (19:25→22:13)
[2024-01-29 19:33] LABS: ABS Lymphocytes 0.3 10^3/uL (1.0-4.8); ABS Monocytes 1.4 10^3/uL (0.0-1.1); ABS Neutrophils 14.5 10^3/uL (1.5-7.6); Hematocrit 38.9 % (38-53); Hemoglobin 12.4 g/dL (13.2-16.3); Lymphocyte % 1.8 %; Mean Corpuscular Hemoglobin 30.7 pg (27-33); Mean Corpuscular Hgb Conc 31.8 g/dL (31-36); Mean Corpuscular Volume 96.6 fL (80-97); Mean Platelet Volume 7.2 fL (7.5-11.2); Platelet Count 286 10^3/uL (150-450); Red Blood Count 4.03 10^6/uL (4.06-5.63); White Blood Count 16.3 10^3/uL (3.6-10.2)
[2024-01-29 19:39] LABS: INR 1.18 (0.83-1.13)
[2024-01-29 19:58] LABS: Albumin 3.9 g/dL (3.2-5.2); Albumin/Globulin Ratio 1.6 (1-3); Calcium 8.8 mg/dL (8.6-10.3); Creatinine, Serum 1.69 mg/dL (0.67-1.17); Globulin 2.4 g/dL (2-4); Magnesium 2.2 mg/dL (1.9-2.7); Potassium 4.4 mmol/L (3.5-5.0); Total Bilirubin 1.1 mg/dL (0.2-1.0); Total Protein 6.3 g/dL (6.4-8.9); eGFR CKD-EPI 41.8 (>60)
[2024-01-29] MEDS: cefTRIAXone 1 gm/50 mL D5W 1 GM/50 ML BAG IV ONE (20:50)
[2024-01-29 21:12] LABS: High Sensitivity Troponin 1 Hr 19 pg/mL (<20)
[2024-01-29] MEDS: Azithromycin 500 mg/250 ml NS 500 MG/250 ML BAG IVPB ONE (21:37)
[2024-01-29] MEDS ORDERED: Albuterol/Ipratropium NEB.SOL (2.5/0.5 MG) 3 ML NEB.SOLN INH PRN (23:46)
[2024-01-30] MEDS ORDERED: Albuterol HFA INHALER 8 gm MDI INH PRN (00:07)
[2024-01-30 00:41] LABS: Urine Appearance No Cx Clear (Clear); Urine Bilirubin No Culture Negative (Negative); Urine Blood No Culture Negative (Negative); Urine Color No Culture Light-Yellow; Urine Glucose No Culture 3+ (>=300 mg/dL) (Negative); Urine Ketones No Culture Negative (Negative); Urine Leukocytes No Culture Negative Leu/uL (Negative); Urine Nitrite No Culture Negative (Negative); Urine Protein No Culture Negative (Negative); Urine Specific Gravity No Cx 1.012 (1.002-1.030); Urine Urobilinogen No Cx Negative (Negative)
[2024-01-30 00:45] LABS: Urine Bacteria No Culture Absent /HPF (Absent); Urine Hyaline Casts No Culture Present /HPF (Absent); Urine Red Blood Cell No Cult Trace(0-2/hpf) /HPF (0-Trace); Urine White Blood Cell No Cult Trace(0-5/hpf) /HPF (0-Trace)
[2024-01-30] MEDS: cefTRIAXone 1 gm/50 mL D5W 1 GM/50 ML BAG IV SCH (01:49)
[2024-01-30] MEDS: Albuterol/Ipratropium NEB.SOL (2.5/0.5 MG) 3 ML NEB.SOLN INH SCH (02:08)
[2024-01-30] MEDS: Furosemide 20 mg/2 ml IV VIAL IV SLOW PU ONE (02:43)
[2024-01-30] MEDS: Azithromycin 500 mg/250 ml NS 500 MG/250 ML BAG IVPB SCH (02:48)
[2024-01-30] MEDS ORDERED: Albuterol/Ipratropium NEB.SOL (2.5/0.5 MG) 3 ML NEB.SOLN INH PRN (03:54)
[2024-01-30 06:08] LABS: Hematocrit 36.1 % (38-53); Hemoglobin 11.9 g/dL (13.2-16.3); Mean Corpuscular Hemoglobin 31.6 pg (27-33); Mean Corpuscular Volume 95.9 fL (80-97); Mean Platelet Volume 7.4 fL (7.5-11.2); Platelet Count 207 10^3/uL (150-450); Red Blood Count 3.77 10^6/uL (4.06-5.63); White Blood Count 10.6 10^3/uL (3.6-10.2)
[2024-01-30 06:30] LABS: Calcium 7.8 mg/dL (8.6-10.3); Creatinine, Serum 1.79 mg/dL (0.67-1.17); Potassium 3.9 mmol/L (3.5-5.0)
[2024-01-30 07:08] LABS: Magnesium 2.1 mg/dL (1.9-2.7)
[2024-01-30] MEDS: Mometasone/Formoter 100/5 MDI INH SCH (07:50)
[2024-01-30] MEDS: Aspirin EC 81 mg TAB.EC (enteric coated) PO SCH (08:33)
[2024-01-30] MEDS: Enoxaparin 40 MG/0.4 ML SYR SUBCUT SCH (08:34)
[2024-01-30] MEDS: Iodixanol (CONTRAST) 320 MG/ML 100 ML SDV IV ONE (09:53)
[2024-01-30] MEDS: Lactated Ringers 1000 ml BAG 500 ML IV ONE (22:03)
[2024-01-31 05:07] LABS: ABS Lymphocytes 0.6 10^3/uL (1.0-4.8); ABS Monocytes 0.8 10^3/uL (0.0-1.1); ABS Neutrophils 9.8 10^3/uL (1.5-7.6); Hematocrit 35.2 % (38-53); Hemoglobin 11.4 g/dL (13.2-16.3); Lymphocyte % 5.4 %; Mean Corpuscular Hemoglobin 31.3 pg (27-33); Mean Corpuscular Hgb Conc 32.5 g/dL (31-36); Mean Platelet Volume 7.8 fL (7.5-11.2); Platelet Count 196 10^3/uL (150-450); Red Blood Count 3.66 10^6/uL (4.06-5.63); White Blood Count 11.3 10^3/uL (3.6-10.2)
[2024-01-31 05:27] LABS: Calcium 7.5 mg/dL (8.6-10.3); Creatinine, Serum 1.49 mg/dL (0.67-1.17); Magnesium 2.3 mg/dL (1.9-2.7); eGFR CKD-EPI 48.6 (>60)
[2024-01-31] MEDS: Albuterol 2.5mg/3 ml (0.083%) NEB.SOLN INH PRN (10:24)
[2024-02-01 06:24] LABS: ABS Lymphocytes 0.4 10^3/uL (1.0-4.8); ABS Monocytes 0.8 10^3/uL (0.0-1.1); ABS Neutrophils 10.9 10^3/uL (1.5-7.6); Hemoglobin 11.5 g/dL (13.2-16.3); Lymphocyte % 3.6 %; Mean Corpuscular Hemoglobin 31.2 pg (27-33); Mean Corpuscular Hgb Conc 32.7 g/dL (31-36); Mean Corpuscular Volume 95.4 fL (80-97); Mean Platelet Volume 8.1 fL (7.5-11.2); Platelet Count 183 10^3/uL (150-450); Red Blood Count 3.67 10^6/uL (4.06-5.63); Red Cell Distribution Width 15.8 % (12-17); White Blood Count 12.2 10^3/uL (3.6-10.2)
[2024-02-01 06:25] LABS: Calcium 7.4 mg/dL (8.6-10.3); Creatinine, Serum 1.42 mg/dL (0.67-1.17); Magnesium 2.4 mg/dL (1.9-2.7); Potassium 3.5 mmol/L (3.5-5.0); eGFR CKD-EPI 51.5 (>60)
[2024-02-01] MEDS: Polyethylene Glycol 3350 17 GM PACKET PO PRN (09:03)
[2024-02-01] MEDS: Albuterol 2.5mg/3 ml (0.083%) NEB.SOLN INH SCH ×2 (14:34→15:17)
[2024-02-01] MEDS: Potassium EFFERVES 25 meq TAB PO ONE (17:47)
[2024-02-02 06:32] LABS: ABS Basophils 0.1 10^3/uL (0.0-0.1); ABS Lymphocytes 0.4 10^3/uL (1.0-4.8); ABS Monocytes 1.2 10^3/uL (0.0-1.1); ABS Neutrophils 15.4 10^3/uL (1.5-7.6); Hematocrit 36.2 % (38-53); Hemoglobin 11.4 g/dL (13.2-16.3); Lymphocyte % 2.6 %; Mean Corpuscular Hemoglobin 30.6 pg (27-33); Mean Corpuscular Hgb Conc 31.5 g/dL (31-36); Mean Platelet Volume 8.2 fL (7.5-11.2); Platelet Count 183 10^3/uL (150-450); Red Blood Count 3.73 10^6/uL (4.06-5.63); Red Cell Distribution Width 15.6 % (12-17); White Blood Count 17.1 10^3/uL (3.6-10.2)
[2024-02-02 07:02] LABS: Anion Gap 14 mmol/L (2-16); Blood Urea Nitrogen 45 mg/dL (6-24); CO2 Carbon Dioxide 23 mmol/L (22-32); Calcium 7.7 mg/dL (8.6-10.3); Chloride 107 mmol/L (101-111); Creatinine, Serum 1.33 mg/dL (0.67-1.17); Glucose 88 mg/dL (70-100); Magnesium 2.3 mg/dL (1.9-2.7); Sodium 144 mmol/L (135-145); eGFR CKD-EPI 55.7 (>60)
[2024-02-02] MEDS: SPIRIVA Respimat (tiotropium) 2.5 mcg/inh Inhaler INH SCH (09:48)
[2024-02-02] MEDS ORDERED: Albuterol 2.5mg/3 ml (0.083%) NEB.SOLN INH PRN (10:50)
[2024-02-02] MEDS: Albuterol/Ipratropium NEB.SOL (2.5/0.5 MG) 3 ML NEB.SOLN INH SCH (11:11)
[2024-02-02] MEDS: Albuterol/Ipratropium NEB.SOL (2.5/0.5 MG) 3 ML NEB.SOLN ONE (15:10)
[2024-02-02] MEDS: Sodium Chloride(INHALANT) 7% 4 ML NEB.SOLN INH ONE (15:11)
[2024-02-03 06:38] LABS: ABS Lymphocytes 0.7 10^3/uL (1.0-4.8); ABS Monocytes 1.2 10^3/uL (0.0-1.1); ABS Nucleated RBC 0.01 10^3/ul; Eosinophil % 0.1 %; Hematocrit 35.6 % (38-53); Hemoglobin 11.5 g/dL (13.2-16.3); Mean Corpuscular Hgb Conc 32.3 g/dL (31-36); Mean Corpuscular Volume 96.1 fL (80-97); Mean Platelet Volume 8.3 fL (7.5-11.2); Nucleated Red Blood Cells % 0.1 %/100WBC (0.0-0.8); Platelet Count 193 10^3/uL (150-450); Red Cell Distribution Width 15.5 % (12-17); White Blood Count 16.9 10^3/uL (3.6-10.2)
[2024-02-03 08:21] LABS: Anion Gap 16 mmol/L (2-16); Blood Urea Nitrogen 40 mg/dL (6-24); CO2 Carbon Dioxide 22 mmol/L (22-32); Calcium 7.7 mg/dL (8.6-10.3); Chloride 106 mmol/L (101-111); Creatinine, Serum 1.21 mg/dL (0.67-1.17); Glucose 78 mg/dL (70-100); Sodium 144 mmol/L (135-145); eGFR CKD-EPI 62.4 (>60)
[2024-02-03 08:46] VITALS: BP 121/89
[2024-02-03 11:49] LABS: Magnesium 2.4 mg/dL (1.9-2.7); Potassium Redraw 4.9 mmol/L (3.5-5.0)
== END 2024-02-03 13:35 | disposition home or self-care (01) | DRG 871 ==
LOC: EDHOLD 19:00 → ED 19:00 → SUATTDRO 21:37 → EDHOLD 01-30 00:26 → MEDTELE 01-30 00:49
PROVIDERS: ADMIT Internal Medicine; ATTEND Student in an Organized Health Care Education/Training Program